=== PATIENT | male | born 1980 | race African-American/Black ===

== ENCOUNTER 2023-06-15 23:43 | Emergency (ER) | payer OTHER, MEDICAID, SELFPAY ==
[2023-06-15 23:49] VITALS: BP 133/102
[2023-06-15 23:50] VITALS: PULSE 99; O2SAT 100
[2023-06-15 23:51] VITALS: BP 133/102; PULSE 98; RESP 16; TEMP 36.6; O2SAT 100; BMI 34.8
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
[2023-06-16] VITALS: PULSE 102; O2SAT 99
--- NOTE | 2023-06-16 00:57 | ED_ITS ---
HPI - Psych <Kiersten Moran DO - Last Filed: 06/16/23 17:54> General Chief Complaint: Psychiatric Symptoms Stated Complaint: paranoid issues Time Seen by Provider: 06/16/23 00:27 Source: patient Mode of arrival: Ambulatory History of Present Illness HPI Narrative: Patient is a 42-year-old male history of paranoia auditory hallucinations, methamphetamine abuse presents today with paranoia concern that someone is after him. He actually lives in [place] he reports that he felt like people were out to get him and following him he came up to [place] where his daughter lives where he thought he could be safe. He is currently staying in a hotel however he heard voices through the wall thought people were still out to get him. He says his daughter is gone with her mother for a week he does not feel safe. He has no thoughts of suicide ideations or homicidal ideations. Records from [place] for [facility] have been received and reviewed he was there June 04,. It does not appear that he was placed in mental health he did receive Haldol. There are reports that he was previously on Zyprexa. However patient denies wanting to take Zyprexa he did not like how it made him feel. Patient admits to methamphetamine use about 3 days ago. He admits to regular marijuana use. He reports he does not feel safe out in the real world feels safe in the ED. He would like mental health placement at this. He apparently is sign up with [facility], in [place]. Related Data Previous Rx's Medication Instructions Recorded haloperidol 10 mg tablet 5 mg (1/2 x 10 mg) PO BID #60 tabs 06/16/23 Allergies Allergy/AdvReac Type Severity Reaction Status Date / Time No Known Drug Allergies Allergy Verified 06/15/23 23:54 Patient History <Kiersten Moran DO - Last Filed: 06/16/23 17:54> Social History Smoking Status: Current every day smoker Smoking Status: Current every day smoker Substance Use Type: marijuana Exam <Kiersten Moran DO - Last Filed: 06/16/23 17:54> Initial Vital Signs Initial Vital Signs: Vital Signs Blood Pressure 133/102 H 06/15/23 23:49 GENERAL: Alert scared 42-year-old male in no acute distress HEAD: Atraumatic. Normocephalic. EYES: Pupils equal round and reactive. Extraocular motions intact. No scleral icterus. No injection or drainage. ENT: Nose without bleeding, purulent drainage. Throat without erythema, tonsillar hypertrophy or exudate. Airway patent. NECK: Trachea midline. Non tender CARDIOVASCULAR: Regular rate and rhythm without murmurs, gallops, or rubs. RESPIRATORY: Clear to auscultation. Breath sounds equal bilaterally. No wheezes, rales, or rhonchi. GASTROINTESTINAL: Abdomen soft, non-tender, nondistended. EXTREMITIES: No edema or joint tenderness. BACK: Nontender without deformity or crepitance. No flank tenderness. NEURO: AOx3. SKIN: No rash or erythema of visible areas <Ross Calderon DO - Last Filed: 06/16/23 11:56> Initial Vital Signs Initial Vital Signs: Vital Signs Blood Pressure 133/102 H 06/15/23 23:49 Course <Kiersten Moran DO - Last Filed: 06/16/23 17:54> Orders Ordered: Discontinued Medications Haloperidol (Haloperidol 5 Mg/Ml Vial) 5 mg IM NOW ONE Stop: 06/16/23 01:09 Last Admin: 06/16/23 01:22 Dose: 5 mg Documented By: TED Nicotine (Nicotine 21 Mg Patch) 21 mg TOP NOW ONE Stop: 06/16/23 08:43 Last Admin: 06/16/23 08:57 Dose: 21 mg Documented By: SPF Vital Signs Vital signs: Vital Signs - 8 hr 06/16/23 10:38 06/16/23 11:59 Pulse Rate 83 Respiratory Rate 16 14 Blood Pressure 146/86 H Pulse Oximetry 98 Oxygen Delivery Method Room Air <Ross Calderon DO - Last Filed: 06/16/23 11:56> Orders Ordered: Discontinued Medications Haloperidol (Haloperidol 5 Mg/Ml Vial) 5 mg IM NOW ONE Stop: 06/16/23 01:09 Last Admin: 06/16/23 01:22 Dose: 5 mg Documented By: TED Nicotine (Nicotine 21 Mg Patch) 21 mg TOP NOW ONE Stop: 06/16/23 08:43 Last Admin: 06/16/23 08:57 Dose: 21 mg Documented By: SPF Vital Signs Vital signs: Vital Signs - 8 hr 06/16/23 10:38 06/16/23 11:59 Pulse Rate 83 Respiratory Rate 16 14 Blood Pressure 146/86 H Pulse Oximetry 98 Oxygen Delivery Method Room Air MDM - Psych <Kiersten Moran, DO - Last Filed: 06/16/23 17:54> Lab Data 06/16/23 01:24 06/16/23 01:24 Labs: Lab Results 06/16/23 06/16/23 Range/Units 01:16 01:24 WBC 9.4 (4.5-11.0) X10^3/uL RBC 3.88 L (4.5-5.9) X10^6/uL Hgb 11.2 L (13.5-17.5) g/dL Hct 33.6 L (41-53) % MCV 86.7 (80-100) fL MCH 29.0 (26-34) PG MCHC 33.4 (30-36) % RDW 14.2 (11.6-14.8) % Plt Count 192 (150-400) X10^3/uL Neut % (Auto) 74.1 (50-75) % Lymph % (Auto) 18.4 L (25-40) % Vernon % (Auto) 6.2 (3-14) % Eos % (Auto) 0.6 L (2-4) % Baso % (Auto) 0.7 (0-2) % Neut # (Auto) 7000 (7694-8505) /uL Lymph # (Auto) 1700 (1085-0048) /uL Vernon # (Auto) 600 (0-900) /uL Eos # (Auto) 100 (0-450) /uL Baso # (Auto) 100 (0-100) /uL Sodium 138 (137-145) mmol/L Potassium 3.6 (3.4-5.1) mmol/L Chloride 107 (98-107) mmol/L Carbon Dioxide 26 (22-32) mmol/L BUN 12 (9-20) mg/dL Creatinine 0.99 (0.66-1.25) mg/dL Estimated GFR > 60 (>60) mL/min BUN/Creatinine Ratio 12.1 (6-22) Glucose 135 H (70-100) mg/dL Calcium 8.9 (8.4-10.2) mg/dL Total Bilirubin 0.3 (0.2-1.3) mg/dL AST 23 (17-59) IU/L ALT 30 (<50) IU/L Alkaline Phosphatase 41 (38-126) U/L Total Protein 6.0 L (6.3-8.2) g/dL Albumin 3.4 L (3.5-5.0) g/dL Globulin 2.6 (1.7-4.1) g/dL Albumin/Globulin Ratio 1.3 (1.0-2.8) TSH 1.12 (0.47-4.68) uIU/mL Urine Color Yellow Urine Appearance Clear Urine pH 6.0 (4.5-8.0) Ur Specific [place] 1.025 (1.000-1.035) Urine Protein Negative (Negative) Urine Glucose (UA) Negative (Negative) g/dL Urine Ketones Negative (NEGATIVE) Urine Occult Blood Negative (Negative) Urine Nitrate Negative (Negative) Urine Bilirubin Negative (NEGATIVE) Urine Urobilinogen 0.2 (0.2) E.U./dL Ur Leukocyte Esterase Trace H (NEGATIVE) Urine RBC None seen (0-5/HPF) Urine WBC 1-5/hpf (0-5/HPF) Ur Squamous Epith Cells None seen (0-5/HPF) Urine Bacteria Occasional (0-1) (None) Ur Culture Indicated? Specimen cultured U Opiates 300ng/mL cut Negative (Negative) Ur Oxycodone Screen Negative (Negative) Urine Methadone Screen Negative (Negative) Ur Barbiturates Screen Negative (Negative) U Tricyclic Antidepress Negative (Negative) Ur Phencyclidine Scrn Negative (Negative) Ur Amphetamines Screen Positive H (Negative) U Methamphetamines Scrn Positive H (Negative) Ur MDMA Scrn (Ecstasy) Negative (Negative) U Benzodiazepines Scrn Negative (Negative) Urine Cocaine Screen Negative (Negative) U Marijuana (THC) Screen Positive H (Negative) Ethyl Alcohol < 10 ( - 10) mg/dL SARS-CoV-2 (PCR) Negative (Negative) MDM Narrative Medical decision making narrative: Patient 42-year-old male history methamphetamine use, paranoia, auditory hallucinations presenting today with the same. He is quite convinced somebody is following him from [place] he is extremely paranoid he feels very unsafe. He is requesting hospitalization. We have called couple of places waiting for [facility] to call back. Blood work has been reviewed overall unremarkable. Urinalysis positive for methamphetamine and amphetamine. Patient 5 mg of Haldol to help with some hallucinations and paranoia and is currently sleeping. Signed out to Dr. Calderon <Ross Calderon, - Last Filed: 06/16/23 11:56> Lab Data Labs: Lab Results 06/16/23 06/16/23 Range/Units 01:16 01:24 WBC 9.4 (4.5-11.0) X10^3/uL RBC 3.88 L (4.5-5.9) X10^6/uL Hgb 11.2 L (13.5-17.5) g/dL Hct 33.6 L (41-53) % MCV 86.7 (80-100) fL MCH 29.0 (26-34) PG MCHC 33.4 (30-36) % RDW 14.2 (11.6-14.8) % Plt Count 192 (150-400) X10^3/uL Neut % (Auto) 74.1 (50-75) % Lymph % (Auto) 18.4 L (25-40) % Vernon % (Auto) 6.2 (3-14) % Eos % (Auto) 0.6 L (2-4) % Baso % (Auto) 0.7 (0-2) % Neut # (Auto) 7000 (0921-4183) /uL Lymph # (Auto) 1700 (5655-7337) /uL Vernon # (Auto) 600 (0-900) /uL Eos # (Auto) 100 (0-450) /uL Baso # (Auto) 100 (0-100) /uL Sodium 138 (137-145) mmol/L Potassium 3.6 (3.4-5.1) mmol/L Chloride 107 (98-107) mmol/L Carbon Dioxide 26 (22-32) mmol/L BUN 12 (9-20) mg/dL Creatinine 0.99 (0.66-1.25) mg/dL Estimated GFR > 60 (>60) mL/min BUN/Creatinine Ratio 12.1 (6-22) Glucose 135 H (70-100) mg/dL Calcium 8.9 (8.4-10.2) mg/dL Total Bilirubin 0.3 (0.2-1.3) mg/dL AST 23 (17-59) IU/L ALT 30 (<50) IU/L Alkaline Phosphatase 41 (38-126) U/L Total Protein 6.0 L (6.3-8.2) g/dL Albumin 3.4 L (3.5-5.0) g/dL Globulin 2.6 (1.7-4.1) g/dL Albumin/Globulin Ratio 1.3 (1.0-2.8) TSH 1.12 (0.47-4.68) uIU/mL Urine Color Yellow Urine Appearance Clear Urine pH 6.0 (4.5-8.0) Ur Specific [place] 1.025 (1.000-1.035) Urine Protein Negative (Negative) Urine Glucose (UA) Negative (Negative) g/dL Urine Ketones Negative (NEGATIVE) Urine Occult Blood Negative (Negative) Urine Nitrate Negative (Negative) Urine Bilirubin Negative (NEGATIVE) Urine Urobilinogen 0.2 (0.2) E.U./dL Ur Leukocyte Esterase Trace H (NEGATIVE) Urine RBC None seen (0-5/HPF) Urine WBC 1-5/hpf (0-5/HPF) Ur Squamous Epith Cells None seen (0-5/HPF) Urine Bacteria Occasional (0-1) (None) Ur Culture Indicated? Specimen cultured U Opiates 300ng/mL cut Negative (Negative) Ur Oxycodone Screen Negative (Negative) Urine Methadone Screen Negative (Negative) Ur Barbiturates Screen Negative (Negative) U Tricyclic Antidepress Negative (Negative) Ur Phencyclidine Scrn Negative (Negative) Ur Amphetamines Screen Positive H (Negative) U Methamphetamines Scrn Positive H (Negative) Ur MDMA Scrn (Ecstasy) Negative (Negative) U Benzodiazepines Scrn Negative (Negative) Urine Cocaine Screen Negative (Negative) U Marijuana (THC) Screen Positive H (Negative) Ethyl Alcohol < 10 ( - 10) mg/dL SARS-CoV-2 (PCR) Negative (Negative) MDM Narrative Medical decision making narrative: Patient 42-year-old male history methamphetamine use, paranoia, auditory hallucinations presenting today with the same. He is quite convinced somebody is following him from [place] he is extremely paranoid he feels very unsafe. He is requesting hospitalization. We have called couple of places waiting for [facility] to call back. Blood work has been reviewed overall unremarkable. Urinalysis positive for methamphetamine and amphetamine. Patient 5 mg of Haldol to help with some hallucinations and paranoia and is currently sleeping. Signed out to Dr. Yumiko Calderon: Received turned over. Review patient's history and physical exam and workup this point. Patient is medically cleared. Has been ambulatory. Has been calm. Denied any further auditory or visual hallucinations. He is tolerating oral intake. He is alert and oriented x3. GCS of 15. In my opinion has capacity to make decisions and is not clinically intoxicated. He states that he would like to be discharged home. He has been on Haldol in the past. He is not on that now. I did send a prescription to Haldol to his local pharmacy of choice. He states he was going back to his hotel room when he leaves here. No indication for an involuntary detainment. He was advised that he can return to the emergency department at any point. He expressed understanding and agreement with plan. Discharge Plan Departure Patient Disposition: Home Clinical Impression: Auditory hallucinations Activity Restrictions/Additional Instructions: A prescription for a medicine called Haldol was sent to [facility] in [place]. I recommend that you start taking it as directed. I also recommend that you contact your primary doctor for a follow-up. Please return to the emergency department for new or worsening symptoms. Prescriptions: New haloperidol 10 mg tablet 5 mg PO BID Qty: 60 0RF Stand Alone Forms: Patient Portal/API
[2023-06-16] MEDS: HALOPERIDOL 5 MG/ML VIAL IM (01:22)
[2023-06-16 01:28] LABS: Appearance Urine UA CLEAR; Bilirubin Urine UA NEGATIVE (NEGATIVE); Color Urine UA YELLOW; Glucose Urine UA NEGATIVE (Negative); Ketones Urine UA NEGATIVE (NEGATIVE); Leukocyte Esterase Urine UA TRACE (NEGATIVE); Nitrite Urine UA NEGATIVE (Negative); Occult Blood Urine UA NEGATIVE (Negative); Protein Urine UA NEGATIVE (Negative); Specific Gravity Urine UA 1.025 (1.000-1.035); Urobilinogen Urine UA 0.2 E.U./dL (0.2)
[2023-06-16 01:34] LABS: Add Manual Diff / Slide Review NO; Basophils Absolute Auto 100 /uL (0-100); Basophils Percent Auto 0.7 % (0-2); Eosinophils Absolute Auto 100 /uL (0-450); Eosinophils Percent Auto 0.6 % (2-4); Hematocrit 33.6 % (41-53); Hemoglobin 11.2 g/dL (13.5-17.5); Lymphocytes Absolute Auto 1700 /uL (1100-4500); Lymphocytes Percent Auto 18.4 % (25-40); Mean Corpuscular HGB Conc 33.4 % (30-36); Mean Corpuscular Volume 86.7 fL (80-100); Monocytes Absolute Auto 600 /uL (0-900); Monocytes Percent Auto 6.2 % (3-14); Neutrophils Absolute Auto 7000 /uL (1500-7000); Neutrophils Percent Auto 74.1 % (50-75); Platelet Count 192 X10^3/uL (150-400); Red Blood Cell Count 3.88 X10^6/uL (4.5-5.9); Red Cell Distribution Width 14.2 % (11.6-14.8); White Blood Cell Count 9.4 X10^3/uL (4.5-11.0)
[2023-06-16 01:39] LABS: COVID19 -Nasal RAPID Negative (Negative); Ur Creatinine Normal (Normal); Ur Specific Gravity Normal (Normal); Urine Cocaine Negative (Negative); Urine Tetrahydrocannabinol Positive (Negative); Urine pH Normal (Normal)
[2023-06-16 01:40] LABS: UR Morphine/Opiate cutoff 300 Negative (Negative); Urine Amphetamines Positive (Negative); Urine Barbiturates Negative (Negative); Urine Benzodiazepines Negative (Negative); Urine MDMA Negative (Negative); Urine Methadone Negative (Negative); Urine Methamphetamines Positive (Negative); Urine Phencyclidine Negative (Negative)
[2023-06-16 01:41] LABS: Urine Oxycodone Negative (Negative); Urine Tricyclic Antidepressant Negative (Negative)
[2023-06-16 01:44] LABS: Bacteria Urine Occasional (0-1); Culture Indicated Urine Specimen Cultured; RBC Urine None Seen (0-5/HPF); Squamous Epithelial Cell Urine None Seen (0-5/HPF); WBC Urine 1-5/HPF (0-5/HPF)
[2023-06-16 01:45] LABS: Alanine Aminotransferase 30 IU/L (<50); Albumin 3.4 g/dL (3.5-5.0); Albumin Globulin Ratio 1.3 (1.0-2.8); Alkaline Phosphatase 41 U/L (38-126); Aspartate Aminotransferase 23 IU/L (17-59); BUN Creatinine Ratio 12.1 (6-22); Bilirubin Total 0.3 mg/dL (0.2-1.3); Blood Urea Nitrogen 12 mg/dL (9-20); Calcium 8.9 mg/dL (8.4-10.2); Carbon Dioxide 26 mmol/L (22-32); Chloride 107 mmol/L (98-107); Estimated Glomerular Filt Rate > 60 mL/min (>60); Ethanol (ETOH) < 10 mg/dL; Globulin 2.6 g/dL (1.7-4.1); Glucose 135 mg/dL (70-100); HEMOLYSIS < 15 (0-50); Potassium 3.6 mmol/L (3.4-5.1); Sodium 138 mmol/L (137-145)
[2023-06-16 02:26] LABS: TSH w/ Reflex to FT4 1.12 uIU/mL (0.47-4.68)
[2023-06-16 08:33] VITALS: BP 128/87; PULSE 75; O2SAT 99
[2023-06-16] MEDS: NICOTINE 21 MG PATCH TOP (08:57)
--- NOTE | 2023-06-16 09:07 | PC.NURSE ---
Patient awoke for breakfast tray, got up to the bathroom, and is back in bed laying down. He denies SI/HI and denies hearing any voices or visual hallucinations. He did mention wanting to [facility] until his daughter came back in town from a week long vacation. He denies having a place to stay in town until his daughter is back home. After expressing his thoughts, pt states No, I want to go to a facility as I dont feel safe out their. Pt requested to go outside to smoke a cigarette and was informed he cannot leave to smoke without being discharged AMA and having to restart the process of bed placement if he chose to check back in. Pt expressed understanding and is ok with using a nicotine patch. Pt now laying in bed with warm blankets, lights dimmed, call light in reach.
[2023-06-16 10:38] VITALS: RESP 16
[2023-06-16 11:59] VITALS: BP 146/86; PULSE 83; RESP 14; O2SAT 98
== END 2023-06-16 12:00 | disposition home or self-care (01) ==
PROVIDERS: Emergency Medicine; Emergency Provider Emergency Medicine
DX: R44.0 Auditory hallucinations (principal)
CPT/HCPCS: 36415; 80053; 80305; 80320; 81001; 84443; 85025; 87086; 87635; 93005; 96372; 99284; C9803; J1630

== ENCOUNTER 2023-06-30 09:50 | Emergency (ER) | payer OTHER, MEDICAID, SELFPAY ==
[2023-06-30 10:05] VITALS: BP 158/89; PULSE 97; RESP 16; TEMP 36.9; O2SAT 98; BMI 36.5
--- NOTE | 2023-06-30 10:28 | ED_ITS ---
HPI - Ear Problem General Chief complaint: Ear Stated complaint: poss ear infection rt side Time Seen by Provider: 06/30/23 10:12 Source: patient History of Present Illness HPI Narrative: Patient is a 42-year-old male history of paranoia auditory hallucinations me thamphetamine abuse presenting today with right ear pain for past couple of days. He reports that he is not been using methamphetamine he is sleeping on a friend's couch. Reports having headache and significant right ear pain. He needs to hold his ear over to pain. He took some Motrin yesterday and it did help some but he has not taken any today. No fever or chills. Related Data Previous Rx's Medication Instructions Recorded haloperidol 10 mg tablet 5 mg (1/2 x 10 mg) PO BID #60 tabs 06/16/23 amoxicillin 875 mg tablet 875 mg PO Q12H #14 tabs 06/30/23 Allergies Allergy/AdvReac Type Severity Reaction Status Date / Time No Known Drug Allergies Allergy Verified 06/30/23 10:13 Patient History Social History Smoking Status: Current every day smoker Smoking Status: Current every day smoker alcohol intake frequency: 0-2 drinks per day Substance Use Type: marijuana Exam Initial Vital Signs Initial Vital Signs: Vital Signs Temperature 98.4 F 06/30/23 10:05 Pulse Rate 97 H 06/30/23 10:05 Respiratory Rate 16 06/30/23 10:05 Blood Pressure 158/89 H 06/30/23 10:05 Pulse Oximetry 98 06/30/23 10:05 Oxygen Delivery Method Room Air 06/30/23 10:05 GENERAL: Alert well-appearing 42-year-old male HEENT: Head atraumatic,EOMI, pupils reactive, EARS: Right opaque tympanic membrane visualized minimal erythema no gross discharge no body Left ear within normal limits CARDIOVASCULAR: Regular rate and rhythm without murmurs, rubs or gallops. RESPIRATORY: Breath sounds equal bilaterally, no wheezes rales or rhonchi. EXTREMITIES: Normal range of motion, no clubbing or edema. Neurovascularly intact NEUROLOGICAL: Alert and oriented x4.Normal gait and speech. SKIN: Warm, dry, no laceration, no petechiae, no rashes or lesions. Course Orders Ordered: Discontinued Medications Ibuprofen (Ibuprofen 400 Mg Tablet) 800 mg PO NOW ONE Stop: 06/30/23 10:35 Last Admin: 06/30/23 10:49 Dose: 800 mg Documented By: KF Vital Signs Vital signs: Vital Signs - 8 hr 06/30/23 10:05 Temperature 98.4 F Pulse Rate 97 H Respiratory Rate 16 Blood Pressure 158/89 H Pulse Oximetry 98 Oxygen Delivery Method Room Air Medical Decision Making MDM Narrative Medical decision making narrative: Well-appearing 42-year-old male presenting right ear pain for a couple of days. Symptoms and exam consistent otitis media. Will start on antibiotics. Patient denies using any drugs recently hallucinations have improved. Discharge Plan Departure Patient Disposition: Home Clinical Impression: Otitis media Instructions: Middle Ear Infection Activity Restrictions/Additional Instructions: *You have been diagnosed with ear infections *What to do: At this rest antibiotics should start kicking in the next 2-3 days, you should start feeling better *Continue to take medications as directed Motrin 600 mg every 6 hours pain Amoxicillin 875mg q 12hr x 7 days *Follow up with your primary care provider in 2-3 days or call [phone] *Return to ER if you should have increasing pain fever headache or any new, worsening or concerning symptoms Prescriptions: New amoxicillin 875 mg tablet 875 mg PO Q12H Qty: 14 0RF No Action haloperidol 10 mg tablet 5 mg PO BID Qty: 60 0RF Stand Alone Forms: Patient Portal/API
[2023-06-30] MEDS: IBUPROFEN 400 MG TABLET 800 MG PO (10:49)
== END 2023-06-30 11:04 | disposition home or self-care (01) ==
PROVIDERS: Emergency Provider Emergency Medicine
DX: H66.91 Otitis media, unspecified, right ear (principal)
CPT/HCPCS: 99282; 99283

== ENCOUNTER 2023-07-01 01:21 | Emergency (ER) | payer OTHER, MEDICAID, SELFPAY ==
[2023-07-01 01:37] VITALS: BP 145/89; PULSE 95; RESP 20; TEMP 37.4; O2SAT 99; BMI 36.1
[2023-07-01 01:54] VITALS: BP 143/87; PULSE 94; RESP 22; O2SAT 96
[2023-07-01 02:04] VITALS: BP 158/88; PULSE 95; RESP 23; O2SAT 97
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
[2023-07-01 02:52] VITALS: BP 154/80
[2023-07-01] MEDS: BENZONATATE 100 MG CAPSULE PO (03:00)
[2023-07-01] MEDS: ACETAMINOPHEN 325 MG TABLET PO (03:00)
[2023-07-01] MEDS: IBUPROFEN 400 MG TABLET PO (03:02)
[2023-07-01 03:23] VITALS: RESP 22; TEMP 36.7; O2SAT 98
== END 2023-07-01 03:26 | disposition home or self-care (01) ==
PROVIDERS: Emergency Provider Emergency Medicine
DX: J02.9 Acute pharyngitis, unspecified (principal); H66.003 Acute suppurative otitis media without spontaneous rupture of ear drum, bilateral; Z20.822 Contact with and (suspected) exposure to COVID-19
CPT/HCPCS: 99283